=== PATIENT | male | born 1950 | race Caucasian/White ===

== ENCOUNTER 2021-07-24 16:44 | Observation (INO) | payer MEDICARE, SELFPAY ==
[2021-07-24 20:17] VITALS: BMI 26.3
[2021-07-24] MEDS ORDERED: Dextrose 5% in Water 1,000 ML IV PRN (20:30)
[2021-07-24] MEDS ORDERED: Dextrose 50% Abboject 50 ML SYRINGE IVP PRN (20:30)
[2021-07-24] MEDS: Atorvastatin Calcium 40 MG TAB PO SCH (20:48)
[2021-07-24] MEDS: HumaLOG 300 UNITS/3 ML VIAL SC PRN (20:49)
[2021-07-24 21:00] LABS: CKMB 1.5 ng/mL (0-6.6)
[2021-07-24] MEDS: Acetaminophen 325 MG TAB PO PRN (23:58)
[2021-07-25 05:18] LABS: Hemoglobin 14.9 g/dL (13.5-17.5); Mean Corpuscular HGB CONC 34.2 g/dL (32.0-36.0); Mean Corpuscular Hemoglobin 31.3 pg (27.0-33.0); Mean Corpuscular Volume 91.6 fl (81.2-95.1); Platelet Count 197 10x3/uL (150-450); RBC Distribution Width 12.8 % (11.5-14.5); Red Blood Cell (RBC) Count 4.76 10x6/uL (4.32-5.72); White Blood Cell (WBC) Count 9.5 10x3/uL (3.5-10.5)
[2021-07-25 05:28] LABS: Anion Gap 17 mmol/L (10-20); BUN (Urea Nitrogen) 19 mg/dL (8.4-25.7); Calc. Creatinine Clearance 81 mL/min (70-130); Calcium 8.9 mg/dL (7.8-10.44); Carbon Dioxide 27 mmol/L (23-31); Chloride 104 mmol/L (98-107); Potassium 3.8 mmol/L (3.5-5.1); Sodium 144 mmol/L (136-145)
[2021-07-25 05:44] LABS: Glucose 180 mg/dL (83-110)
[2021-07-25] MEDS: hydrALAZINE 20 MG/ML VIAL SLOW IVP PRN ×2 (06:12→20:05)
[2021-07-25] MEDS ORDERED: Calcium Carbonate 500 MG ChewTAB PO PRN (08:27)
[2021-07-25] MEDS ORDERED: Ondansetron ODT 4 MG TAB PO PRN (08:27)
[2021-07-25] MEDS ORDERED: Senokot S 8.6-50 MG TAB PO PRN (08:27)
[2021-07-25] MEDS ORDERED: Zolpidem Tartrate 5 MG TAB PO PRN (08:27)
[2021-07-25] MEDS ORDERED: HYDROcodone/Acetaminophen 5/325 mg Tablet PO PRN ×2 (08:27)
[2021-07-25] MEDS ORDERED: Loperamide HCl 2 MG CAP PO PRN (08:27)
[2021-07-25] MEDS: Lisinopril 5 MG TAB PO SCH (08:45)
[2021-07-25] MEDS: HumaLOG 300 UNITS/3 ML VIAL SC PRN ×2 (12:55→17:41)
[2021-07-25] MEDS: Atorvastatin Calcium 40 MG TAB PO SCH (20:04)
[2021-07-25] MEDS: Acetaminophen 325 MG TAB PO PRN (20:05)
[2021-07-26 04:52] LABS: INR-International Normal Ratio 0.9; PTT 24.8 sec (22.0-33.0); Prothrombin Time 9.8 sec (9.5-12.1)
[2021-07-26 04:54] LABS: Mean Corpuscular HGB CONC 35.5 g/dL (32.0-36.0); Mean Corpuscular Hemoglobin 32.3 pg (27.0-33.0); Mean Corpuscular Volume 90.9 fl (81.2-95.1); Mean Platelet Volume 8.9 fl (7.4-10.4); Platelet Count 213 10x3/uL (150-450); RBC Distribution Width 12.9 % (11.5-14.5); Red Blood Cell (RBC) Count 4.96 10x6/uL (4.32-5.72); White Blood Cell (WBC) Count 12.4 10x3/uL (3.5-10.5)
[2021-07-26 05:00] LABS: Anion Gap 14 mmol/L (10-20); BUN (Urea Nitrogen) 17 mg/dL (8.4-25.7); Calc. Creatinine Clearance 88 mL/min (70-130); Calcium 9.4 mg/dL (7.8-10.44); Carbon Dioxide 28 mmol/L (23-31); Chloride 102 mmol/L (98-107); Glucose 150 mg/dL (83-110); Potassium 3.8 mmol/L (3.5-5.1); Sodium 140 mmol/L (136-145)
[2021-07-26] MEDS: Lisinopril 5 MG TAB PO SCH (05:04)
[2021-07-26] MEDS ORDERED: CEFAZOLIN 1 GM VIAL ONE (06:11)
[2021-07-26] MEDS ORDERED: Fentanyl 100 MCG/2 ML VIAL ONE (06:11)
[2021-07-26] MEDS ORDERED: Midazolam HCl 2 mg/2 ml Vial ONE (06:11)
[2021-07-26] MEDS ORDERED: Lidocaine 2% 20 ml MDV ONE (06:14)
[2021-07-26] MEDS ORDERED: Gentamicin 80 MG/2 ML VIAL ONE (06:32)
[2021-07-26] MEDS: Acetaminophen 325 MG TAB PO PRN (10:38)
[2021-07-26 12:49] VITALS: BP 127/79; TEMP 98.1
[2021-07-27] MEDS ORDERED: Cefadroxil Hydrate 250 mg/5 ml Suspensio PO SCH (09:00)
== END 2021-07-26 15:17 | disposition home or self-care (01) ==
LOC: UNDOADMOB 16:44 → INTOOBSV 16:44 → CSHTELE 16:44
PROVIDERS: ADMIT Specialist; ATTEND Specialist
DX: I44.2 Atrioventricular block, complete (principal); I10 Essential (primary) hypertension; E78.5 Hyperlipidemia, unspecified; E11.9 Type 2 diabetes mellitus without complications; Z79.899 Other long term (current) drug therapy; Z79.84 Long term (current) use of oral hypoglycemic drugs; Z88.1 Allergy status to other antibiotic agents; Z88.8 Allergy status to other drugs, medicaments and biological substances
CPT/HCPCS: 33208; 71045; 80048 ×2; 82553; 82962 ×3; 84484; 85027 ×2; 85610; 85730; C1785; C1898 ×2; 36415; 36416; 96374; 99152; 99153; G0378; J0360; J0690; J1580; J1815; J2250; J3010